=== PATIENT | male | born 1955 | race African-American/Black ===

== ENCOUNTER 2022-09-08 10:43 | Emergency (ER) | payer MEDICARE, OTHER ==
[~2022-09-08] VITALS: Ht 182.9 cm; Wt 77.0 kg
[2022-09-08] MEDS ORDERED: KETOROLAC 60MG/2ML VIAL IM STA (10:51)
[2022-09-08 12:19] LABS: BASOPHILS % 0.7 % (0.0-2.0); EOSINOPHILS % 5.7 % (0.0-5.0); HEMOGLOBIN. 13.7 g/dL (14.0-18.0); LYMPHOCYTES % 11.5 % (20.0-50.0); MEAN CORPUSCULAR HEMOGLOBIN 30.5 pg (28.0-32.0); MEAN CORPUSCULAR VOLUME 89.1 fL (80.0-94.0); MONOCYTES % 7.5 % (2.0-8.0); NEUTROPHILS % 74.6 % (40.0-76.0); RED BLOOD CELL COUNT 4.49 mill/uL (4.7-6.1); RED CELL DISTRIBUTION WIDTH 15.5 % (11.6-14.6)
[2022-09-08] MEDS ORDERED: KETOROLAC 30MG/ML VIAL IM NR (12:25)
[2022-09-08 12:29] LABS: CHLORIDE 108 mEq/L (98-107)
[2022-09-08 12:32] VITALS: BP 163/93
[2022-09-08 12:41] LABS: MEAN PLATELET VOLUME 8.6 fl (7.4-10.4); PLATELET 232 x1000/uL (130-400)
[2022-09-08] MEDS ORDERED: CYCL10TA21 MT (14:23)
== END 2022-09-08 16:09 | disposition home or self-care (01) ==
LOC: ER 10:43
DX: N28.9 Disorder of kidney and ureter, unspecified (principal); M54.50 Low back pain, unspecified; I48.91 Unspecified atrial fibrillation; E11.9 Type 2 diabetes mellitus without complications; I10 Essential (primary) hypertension
CPT/HCPCS: 36415; 74176; 80053; 85025; 96372; 99285; J1885